=== PATIENT | female | born 1990 | race Caucasian/White ===

== ENCOUNTER 2021-07-08 16:34 | Emergency (ER) | payer OTHER ==
[~2021-07-08] VITALS: Ht 160 cm; Wt 68.0 kg
[~2021-07-08 16:34] MED LIST: CEFTIN250 MG PO
[2021-07-08] MEDS ORDERED: PRENATAL + DHA1 EAC1 PO (16:42)
[2021-07-08] MEDS ORDERED: ADULT LOW DOSE81 M1 PO (16:42)
== END 2021-07-08 19:54 | disposition home or self-care (01) ==
LOC: ER 16:34
DX: O26.892 Other specified pregnancy related conditions, second trimester (principal); Z3A.22 22 weeks gestation of pregnancy; Z37.2 Twins, both liveborn; J10.1 Influenza due to other identified influenza virus with other respiratory manifestations; A49.3 Mycoplasma infection, unspecified site; Z20.822 Contact with and (suspected) exposure to COVID-19

== ENCOUNTER 2021-09-25 12:11 | Outpatient (CLI) | payer OTHER ==
[~2021-09-25 12:11] MED LIST changes: +ADULT LOW DOSE81 M1 PO; +PRENATAL + DHA1 EAC1 PO
[2021-09-26] MEDS ORDERED: IRON325 MG PO (11:29)
== END 2021-09-26 14:32 | disposition home or self-care (01) ==
LOC: OBS/DEL 12:11
PROVIDERS: ATTEND Specialist
DX: O47.03 False labor before 37 completed weeks of gestation, third trimester (principal); O30.043 Twin pregnancy, dichorionic/diamniotic, third trimester; O24.419 Gestational diabetes mellitus in pregnancy, unspecified control; Z3A.32 32 weeks gestation of pregnancy

== ENCOUNTER 2021-10-26 13:36 | Inpatient (IN) | payer OTHER ==
[~2021-10-26] VITALS: Ht 160 cm; Wt 2.3 kg
[~2021-10-26 13:36] MED LIST changes: +IRON325 MG PO
[2021-10-26] MEDS ORDERED: ACID REDUCER20 M1 (14:36)
[2021-10-29] MEDS ORDERED: FLONASE16 GM (08:02)
[2021-10-29] MEDS ORDERED: PULMICORT FLE180 MCG (08:03)
[2021-10-29] MEDS ORDERED: ALBUTEROL2.5 MG/3 M (08:03)
[2021-10-29] MEDS ORDERED: SURFAK240 M1 PO (13:38)
[2021-10-29] MEDS ORDERED: PERCOCET 5-3251 EACH PO (13:38)
== END 2021-10-29 14:18 | disposition home or self-care (01) | DRG 783 ==
LOC: LDR 13:36 → OB/GYN 13:36 → LDR 14:59 → OB/GYN 22:00
PROVIDERS: ADMIT Specialist; ATTEND Specialist
PROC: 0UB70ZZ Excision of Bilateral Fallopian Tubes, Open Approach (ICD-10-PCS; 2021-10-26)
PROC: 4A1HXCZ Monitoring of Products of Conception, Cardiac Rate, External Approach (ICD-10-PCS; 2021-10-26)
PROC: 10D00Z1 Extraction of Products of Conception, Low, Open Approach (ICD-10-PCS; principal; 2021-10-26 22:45)
DX: O32.8XX2 Maternal care for other malpresentation of fetus, fetus 2 (principal); O60.14X2 Preterm labor third trimester with preterm delivery third trimester, fetus 2; U07.1 COVID-19; O98.513 Other viral diseases complicating pregnancy, third trimester; O24.410 Gestational diabetes mellitus in pregnancy, diet controlled; O30.093 Twin pregnancy, unable to determine number of placenta and number of amniotic sacs, third trimester; Z37.2 Twins, both liveborn; Z3A.36 36 weeks gestation of pregnancy; Z30.2 Encounter for sterilization